=== PATIENT | male | born 1960 | race Caucasian/White ===

== ENCOUNTER 2024-01-20 08:02 | Inpatient (IN) | payer OTHER, SELFPAY ==
--- NOTE | 2023-12-20 09:07 | CM ---
Patient is scheduled for a T TK Revision on 01/20/24. Spoke with patient prior to surgery via telephone. Patient had R TK Revision (2019) and B TKR (2018) at . Reintroduced role of Orthopedic Navigator. Patient reports that he lives with his
and daughter in a two story home. There are five (2-3) steps to enter and a flight of steps to the second floor. There is a powder room on the first floor. He currently functions independently. He has a rolling walker and cane. He has never had VN
services. PCP is Stanley Dhillon.
Discussed orthopedic program and post surgical plans. Reviewed anticipated length of stay and that goal is for him to return home at discharge. Also reviewed outpatient PT. Patient is in agreement with tentative plan and will go directly to
outpatient PT at [facility]. He will have support from his family when he goes home.
Patient will complete online education.
Plan: Orthopedic Navigator will remain available to assist with the care of patient and will reassess discharge needs after surgery.
[2023-12-25 08:22] VITALS: BMI 26.5
[2023-12-25 09:29] LABS: Hematocrit 45.7 % (39.0-52.0); Mean Corpuscular Hgb 30.2 pg (27.0-31.0); Mean Corpuscular Volume 86.4 fL (80.0-94.0); Mean Platelet Volume 10.2 fL (7.4-10.4); Platelet Count 207 10^3/uL (130-400); Red Blood Cell Count 5.29 10^6/uL (4.70-6.10); Red Cell Dist. Width 13.7 % (11.5-14.5); White Blood Cell Count 7.7 10^3/uL (4.8-10.8)
[2023-12-25 10:25] LABS: ALT (SGPT) 33 U/L (0-50); AST (SGOT) 36 U/L (17-59); Albumin 4.6 g/dl (3.5-5.0); Alkaline Phosphatase 97 U/L (38-126); Blood Urea Nitrogen 14 mg/dl (9-20); Calcium 10.3 mg/dl (8.4-10.2); Carbon Dioxide 28 mmol/L (22-30); Chloride 103 mmol/L (98-107); Estimated Creatinine Clearance 110 ml/min; Glucose 98 mg/dl (70-99); Potassium 4.1 mmol/L (3.5-5.1); Sodium 138 mmol/L (135-145); Total Bilirubin 0.9 mg/dl (0.2-1.3); Total Protein 7.8 g/dl (6.3-8.2); eGFR > 60.00
[2023-12-25 11:09] LABS: Glycohemoglobin (HgbA1c) 5.5 % (4.0-5.6)
[2024-01-15 11:55] VITALS: BMI 26.5
[2024-01-20] VITALS (15 sets, daily range): BP systolic 106–155; BP diastolic 69–110; PULSE 66
[2024-01-20] MEDS: NORMOSOL-R 1000 IV ×2 (08:11→14:15)
[2024-01-20] MEDS: TYLENOL 650 MG PO ×3 (08:12→20:10)
--- NOTE | 2024-01-20 11:11 | W.DS.TRANS ---
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
-
Discharge Instructions:
Sleep Apnea Risk Intermediate
Discharge Diagnosis/Procedures L TKA Revision 01/20/24
Diet As tolerated
Activity With Walker
Driving Restrictions No driving
Bathing Restrictions OK to Shower
Other Services PT
Instructions:
Stand-Alone Forms:
Changes to Home Medications: Yes
Discharge Medications:
DC Medications w/original date entered in [employer]
atorvastatin 10 mg tablet 40 mg PO HS 10/22/17
testosterone 30 mg/actuation (1.5 mL) transderm solution metered pump 1 applic topical DAILY 10/22/17
mupirocin 2 % topical ointment 1 applic intranasal BID #1 tube 10/27/18
altyypk-dqyrptphuyzmq-buihaufg 250 mg-250 mg-65 mg tablet (Excedrin Migraine) 1 tab PO ONCE PRN headache 01/13/24
losartan 100 mg-hydrochlorothiazide 25 mg tablet 1 tab PO DAILY 01/13/24
Saccharomyces boulardii 250 mg capsule (Florastor) 250 mg PO BID #1 cap 01/20/24
acetaminophen 325 mg tablet 650 mg (2 x 325 mg) PO QID #0 tabs 01/20/24
aspirin 325 mg tablet 325 mg PO DAILY blood clot prevention #1 tab 01/20/24
cefadroxil 500 mg capsule 500 mg PO BID infection prevention #14 caps 01/20/24
dexamethasone 4 mg tablet 4 mg PO BID inflammation #6 tabs 01/20/24
docusate sodium 100 mg capsule (Colace) 100 mg PO BID stool softner #1 cap 01/20/24
magnesium hydroxide 400 mg/5 mL oral suspension (Milk of Magnesia) 30 ml PO HS PRN Constipation #1 mL 01/20/24
ondansetron 4 mg disintegrating tablet 4 mg PO Q6H PRN n/v #20 tabs 01/20/24
oxycodone 5 mg tablet 5 mg PO Q6H PRN 1 tab moderate pain, 2 tabs severe pain #30 tabs 01/20/24
sennosides 8.6 mg tablet (Senokot) 17.2 mg (2 x 8.6 mg) PO BID laxative #2 tabs 01/20/24
Home Medication Changes
cefadroxil 500 mg capsule 500 mg PO BID infection prevention #14 caps 01/20/24�
dexamethasone 4 mg tablet 4 mg PO BID inflammation #6 tabs 01/20/24�
ondansetron 4 mg disintegrating tablet 4 mg PO Q6H PRN n/v #20 tabs 01/20/24�
oxycodone 5 mg tablet 5 mg PO Q6H PRN 1 tab moderate pain, 2 tabs severe pain #30 tabs 01/20/24�
Pending Results: No
[2024-01-20] MEDS: ROXICODONE 5 MG PO (14:58)
--- NOTE | 2024-01-20 15:30 | PTCARENOTE ---
Pt received from the PACU via bed. Transport was w/o incident. Pt is AAOx3, HR Reg/irreg, lungs are clear, resp. easy, pulse ox 98%RA, VSS, pt is afebrile. Pt's left knee with Aquacell dressing C/D/I, dry, scant amount of drainage noted. Ice pack
applied as ordered to left knee. Pt reports pain as 1 out of 10 on pain scale. Pt denies nausea at this time. Pt instructed on plan of care. Pt verbalized understanding of instructions. Call hathaway is within reach.
[2024-01-20] MEDS: ANCEF 5 IV (17:21)
[2024-01-20] MEDS: ASPIRIN 325 MG PO (17:22)
[2024-01-20] MEDS: SENOKOT 17.2 MG PO (20:10)
[2024-01-20] MEDS: COLACE 100 MG PO (20:10)
[2024-01-20] MEDS: DECADRON 4 MG PO (20:11)
[2024-01-20] MEDS: TORADOL 10 MG IV (20:11)
[2024-01-20] MEDS: BACTROBAN 2% OINTMENT 1 APPLIC NASAL (20:12)
[2024-01-20] MEDS: NEURONTIN 300 MG PO (22:48)
[2024-01-20] MEDS: LIPITOR 40 MG PO (22:48)
[2024-01-21] MEDS: ANCEF 5 IV (00:13)
[2024-01-21] MEDS: TYLENOL 650 MG PO ×3 (00:14→08:25)
[2024-01-21 07:40] VITALS: BP 133/78
--- NOTE | 2024-01-21 08:12 | CM ---
Reviewed chart and held rounds with PT, OT and nursing. Patient admitted as planned for L TK Revision. Met with patient at bedside. Confirmed information previously obtained for assessment. Also discussed discharge plans. The plan is for patient to
return home at discharge. He will have support from his and children when he goes home. Patient will go directly to outpatient PT and will go to [facility]. He has an appointment scheduled for , 02/04.
Patient has a rolling walker and cane.
[2024-01-21] MEDS: DECADRON 4 MG PO (08:24)
[2024-01-21] MEDS: ASPIRIN 325 MG PO (08:25)
[2024-01-21] MEDS: MOBIC 15 MG PO (08:25)
[2024-01-21] MEDS: SENOKOT 17.2 MG PO (08:25)
[2024-01-21] MEDS: COLACE 100 MG PO (08:25)
[2024-01-21] MEDS: TORADOL 10 MG IV (08:26)
[2024-01-21] MEDS: BACTROBAN 2% OINTMENT 1 APPLIC NASAL (08:26)
--- NOTE | 2024-01-21 08:53 | CM ---
Addendum entered by Chrissie Elizalde 01/21/24 10:22:
Patient did well in therapy. He has no concerns about going home.
Original Note:
Reviewed chart and held rounds with PT, OT and nursing. Patient admitted as planned for L TK Revision. Met with patient at bedside. Confirmed information previously obtained for assessment. Also discussed discharge plans. The plan is for patient to
return home at discharge. He will have support from his and children when he goes home. Patient will go directly to outpatient PT and will go to [facility]. He has an appointment scheduled for , 01/22.
Patient has a rolling walker and cane.
[2024-01-21 09:10] VITALS: BP 138/75; BP 153/87; PULSE 89; O2SAT 97
--- NOTE | 2024-01-21 09:57 | W.PN.ORTHO ---
Today's Communication / Plan
-
d/c
Assessment
.
Distal Motor Intact: Yes
Dressing:
Clean, dry and intact.
Plan
.
Surgery / Date: L TKA Revision 01/20/24
DVT Prophylaxis: Aspirin
Activity:
Out of bed.
PT/OT
Discharge Plan: Home w/ Outpatient PT
Subjective
.
.:
Patient resting comfortably.
Vital Signs and Labs
.
Vital Signs and Labs:
Lab Results
12/25/23 08:18
12/25/23 08:18
Temp Pulse Resp BP Pulse Ox
97.7 F 78 14 142/79 97
01/21/24 07:40 01/21/24 07:40 01/21/24 07:40 01/21/24 08:26 01/21/24 07:40
Non-invasive Hgb result: 14.3
Physical Exam
-
HEENT: No pallor, cyanosis, or jaundice. Throat clear.
NECK: Supple. No JVD.
RESPIRATORY: Lungs clear to auscultation.
CVS: S1, S2 normal. RRR.� No murmur, rub or gallop.
ABDOMEN: Soft, non-tender. No distension. BS+/normal.
EXTREMITIES: strength equal, no calf pain with palpation
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 No focal deficits. 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
== END 2024-01-21 11:06 | disposition home or self-care (01) | DRG 468 ==
LOC: 2 SOUTH 08:02
PROVIDERS: ADMITTING PHYSICIAN Specialist; FAMILY PHYSICIAN Family Medicine
PROC: 0SPD0JZ Removal of Synthetic Substitute from Left Knee Joint, Open Approach (ICD-10-PCS; 2024-01-20)
PROC: 0SRD0J9 Replacement of Left Knee Joint with Synthetic Substitute, Cemented, Open Approach (ICD-10-PCS; 2024-01-20)
DX: T84.033A Mechanical loosening of internal left knee prosthetic joint, initial encounter (principal); T84.84XA Pain due to internal orthopedic prosthetic devices, implants and grafts, initial encounter; I10 Essential (primary) hypertension; M17.0 Bilateral primary osteoarthritis of knee; E78.00 Pure hypercholesterolemia, unspecified; Z88.2 Allergy status to sulfonamides; Z79.899 Other long term (current) drug therapy; Z96.651 Presence of right artificial knee joint; Y79.2 Prosthetic and other implants, materials and accessory orthopedic devices associated with adverse incidents; Y83.8 Other surgical procedures as the cause of abnormal reaction of the patient, or of later complication, without mention of misadventure at the time of the procedure; R26.2 Difficulty in walking, not elsewhere classified; M89.562 Osteolysis, left lower leg
CPT/HCPCS: 36415; 73560; 80053; 83036; 85027; 86850; 86900; 86901; 87070; 93005; 97110; 97116; 97162; 97165; 97530; C1713; C1762; C1776